=== PATIENT | male | born 1945 | race Caucasian/White ===

== ENCOUNTER → 2024-05-15 09:11 | Outpatient (REF) | payer MEDICARE, BC, SELFPAY | LOC: RAD 09:11 | PROVIDERS: ATTENDING PHYSICIAN Otolaryngology; FAMILY PHYSICIAN Internal Medicine | DX: R13.10 Dysphagia, unspecified (principal) | CPT/HCPCS: 74221 ==

== ENCOUNTER → 2025-02-27 07:42 | Outpatient (REF) | payer MEDICARE, BC, SELFPAY | LOC: RAD 07:42 | PROVIDERS: ATTENDING PHYSICIAN Internal Medicine | DX: I87.8 Other specified disorders of veins (principal); R60.0 Localized edema; R06.02 Shortness of breath | CPT/HCPCS: 93970 ==